=== PATIENT | female | born 1945 | race Caucasian/White ===

== ENCOUNTER 2019-07-20 14:37 | Inpatient (IN) ==
[2019-07-20] MEDS ORDERED: Nitroglycerin 0.4 MG TAB.SUBL SL PRN (15:15)
[2019-07-20] MEDS ORDERED: Aspirin 81 MG TAB.CHEW PO ONE (15:15)
[2019-07-20 15:35] LABS: Prothrombin Time 11.1 Seconds (9.4-12.1)
[2019-07-20 15:38] LABS: Activated Partial Thrombo Time 32.2 Seconds (26.0-36.0); Basophils % 0.5 %; Eosinophils # 0.1 K/mcL (0.0-0.6); Eosinophils % 1.3 %; Hematocrit 43.4 % (35.3-44.9); Hemoglobin 14.2 g/dL (11.5-15.4); Immature Granulocytes % 0.4 % (0-4); Lymphocytes # 1.8 K/mcL (0.6-4.6); Lymphocytes % 23.6 %; Mean Corpuscular HGB Conc 32.7 g/dL (31.6-35.5); Mean Corpuscular Hemoglobin 29.3 pg (28.0-33.3); Mean Corpuscular Volume 89.7 fL (83.0-100.0); Mean Platelet Volume 10.1 fL (9.4-12.4); Monocytes # 0.7 K/mcL (0.0-1.3); Monocytes % 8.4 %; Neutrophils # 5.1 K/mcL (1.6-8.9); Platelet Count 231 K/mcL (140-400); Red Blood Count 4.84 M/mcL (3.82-4.97); Red Cell Distribution Width 12.8 % (11.5-14.5); Segmented Neutrophils % 65.8 %; White Blood Count 7.7 K/mcL (4.3-11.1)
[2019-07-20 15:47] LABS: BUN/Creatinine Ratio 17 (6-26); Blood Urea Nitrogen 13 mg/dL (8-23); Calcium 9.2 mg/dL (8.6-10.3); Carbon Dioxide 28 mEq/L (23-29); Chloride 105 mEq/L (98-107); Glucose 110 mg/dL (70-105); Osmolality,Calculated 291 (280-300); Potassium 4.4 mEq/L (3.5-5.1); Sodium 140 mEq/L (136-145); Troponin I < 0.03 ng/mL (< 0.04); eGFR For African Americans > 60 (> 60); eGFR For Non-African Americans > 60 (> 60)
[2019-07-20] MEDS ORDERED: Naloxone 0.4 MG/ML INJ IVP PRN (16:40)
[2019-07-20] MEDS ORDERED: traZODone 50 MG TABLET PO PRN (19:58)
[2019-07-20] MEDS: ARIPiprazole 5 MG TABLET PO SCH (20:56)
[2019-07-20] MEDS: Divalproex (12 HR) 500 MG TABLET PO SCH (20:56)
[2019-07-20] MEDS: Nystatin Cream 15 GM TUBE TP SCH (21:34)
[2019-07-20] MEDS ORDERED: Perflutren Lipid Microsphere 1.3 ML in 0.9 % Sodium Chloride 8.7 ML IVP ONE (22:29)
[2019-07-20] MEDS ORDERED: Perflutren Lipid Microsphere 2 ML VIAL ONE (22:39)
[2019-07-21] MEDS ORDERED: Regadenoson 0.4 MG/5 ML SYRINGE IVP ONE (06:31)
[2019-07-21] MEDS ORDERED: Metoprolol XL (24 HR) Succ 50 MG TAB.ER.24H PO SCH ×2 (09:00→12:00)
[2019-07-21] MEDS: Aspirin Enteric Coated 81 MG Tablet PO SCH (10:15)
[2019-07-21] MEDS: Divalproex (12 HR) 500 MG TABLET PO SCH ×2 (10:15→19:23)
[2019-07-21] MEDS: amLODIPine 5 MG TABLET PO SCH (10:15)
[2019-07-21] MEDS: Nystatin Cream 15 GM TUBE TP SCH ×2 (10:21→19:25)
[2019-07-21 12:06] LABS: Estimated Average Glucose 171 mg/dl
[2019-07-21] MEDS ORDERED: D5% in Water 1,000 ML IVC PRN (14:02)
[2019-07-21] MEDS ORDERED: Dextrose Gel 15 GM/37.5 ML TUBE PO PRN ×2 (14:02)
[2019-07-21] MEDS ORDERED: *HR* Dextrose 50 % in Water (Syg) 50 ML SYRINGE IVP PRN (14:02)
[2019-07-21] MEDS: Furosemide 20 MG TABLET PO SCH (17:25)
[2019-07-21] MEDS: Insulin LISPRO 300 UNITS/3 ML VIAL SQ SCH (17:25)
[2019-07-21] MEDS: ARIPiprazole 5 MG TABLET PO SCH (19:23)
[2019-07-21] MEDS ORDERED: Insulin LISPRO 300 UNITS/3 ML VIAL SQ SCH (21:00)
[2019-07-22 03:40] VITALS: BP 113/62
[2019-07-22] MEDS: Insulin LISPRO 300 UNITS/3 ML VIAL SQ SCH (08:46)
[2019-07-22] MEDS ORDERED: Metoprolol XL (24 HR) Succ 25 MG TAB.ER.24H PO SCH (10:30)
[2019-07-22] MEDS: Divalproex (12 HR) 500 MG TABLET PO SCH (10:40)
[2019-07-22] MEDS: Nystatin Cream 15 GM TUBE TP SCH (10:40)
[2019-07-22] MEDS: Furosemide 20 MG TABLET PO SCH (10:40)
[2019-07-22] MEDS: Aspirin Enteric Coated 81 MG Tablet PO SCH (10:40)
[2019-07-22] MEDS: amLODIPine 5 MG TABLET PO SCH (10:40)
== END 2019-07-22 11:17 | disposition home or self-care (01) | DRG 311 ==
LOC: 3BNU 14:37 → EMEROOARM 14:37 → 3BNU 17:57
PROVIDERS: ADMIT Internal Medicine; ATTEND Internal Medicine